=== PATIENT | female | born 1975 | race Caucasian/White ===

== ENCOUNTER 2019-04-25 16:43 | Emergency (ER) | payer OTHER ==
[2019-04-25] MEDS ORDERED: IBUPROFEN 600 MG TABLET PO ONE (17:23)
--- NOTE | 2019-04-25 17:33 | ER Document Report ---
ED Medical Screen (RME) - General Chief Complaint: Fall Injury Stated Complaint: FALL/BACK AND STERNUM PAIN Time Seen by Provider: 04/25/19 17:17 Primary Care Provider: TYRELL CARMICHAEL MD [Primary Care Provider] - Follow up as needed Notes: Patient is a 43-year-old female who presents emergency department with a chief complaint of chest wall pain. Patient had fallen a week ago on concrete and was seen at urgent care. Her x-rays were normal. Today she took some ibuprofen in the morning and throughout the day she ended up having some chest wall pain. She states that every time she presses on her mid chest at her sternum, she ends up having pain. Exam: Tenderness upon palpation to sternum and right lateral chest wall. I have greeted and performed a rapid initial assessment of this patient. A comprehensive ED assessment and evaluation of the patient, analysis of test results and completion of medical decision making process will be conducted by an additional ED providers. - Related Data Allergies/Adverse Reactions: codeine [Codeine] Allergy (Unverified 01/27/11 05:26) Home Medications: lexapro. buspar Past Medical History - Social History Frequency of alcohol use: None Drug Abuse: None Physical Exam - Vital signs Vitals: Temp Pulse Resp BP Pulse Ox 98.4 F 83 18 121/72 100 04/25/19 16:54 04/25/19 16:54 04/25/19 16:54 04/25/19 16:54 04/25/19 16:54 Course - Vital Signs Vital signs: Temp Pulse Resp BP Pulse Ox 98.4 F 83 18 121/72 100 04/25/19 16:54 04/25/19 16:54 04/25/19 16:54 04/25/19 16:54 04/25/19 16:54 Doctor's Discharge - Discharge Referrals: TYRELL CARMICHAEL MD [Primary Care Provider] - Follow up as needed
--- NOTE | 2019-04-25 18:04 | RADIOLOGY REPORT (SQ) ---
EXAM DESCRIPTION: RIBS BILATERAL W/PA CXR COMPLETED DATE/TIME: 04/25/2019 5:46 pm REASON FOR STUDY: fall; chest wall pain COMPARISON: None. TECHNIQUE: Frontal view of the chest and additional views of the right and left ribs acquired. NUMBER OF VIEWS: Four views LIMITATIONS: None. FINDINGS: FRONTAL CXR: No pneumothorax. No pleural effusion. No atelectasis or infiltrates. RIBS: No displaced rib fractures. No lytic or blastic bony lesions. OTHER: No other significant finding. IMPRESSION: NO PNEUMOTHORAX. NO DISPLACED RIB FRACTURES. COMMENT: SITE OF TRAUMA/COMPLAINT MARKED/STAMP COMPLETED: No TECHNICAL DOCUMENTATION: JOB ID: [id number] [employer]- All Rights Reserved Reading location - IP/workstation name: [email or web address]
--- NOTE | 2019-04-25 18:05 | RADIOLOGY REPORT (SQ) ---
EXAM DESCRIPTION: STERNUM COMPLETED DATE/TIME: 04/25/2019 5:46 pm REASON FOR STUDY: fall 1 week ago; chest wall pain COMPARISON: None. NUMBER OF VIEWS: Two views. TECHNIQUE: Lateral and AP and/or oblique views of the sternum. LIMITATIONS: None. FINDINGS: There is no acute or significant bone, joint or soft tissue abnormality. OTHER: No other significant finding. IMPRESSION: NEGATIVE STUDY OF THE STERNUM. TECHNICAL DOCUMENTATION: JOB ID: [id number] [employer]- All Rights Reserved Reading location - IP/workstation name: [email or web address]
--- NOTE | 2019-04-25 18:19 | ER Document Report ---
HPI - HPI Time Seen by Provider: 04/25/19 17:17 Pain Level: 5 Context: Patient is a 43-year-old female who presents emergency department with a chief complaint of chest wall pain. Patient had fallen a week ago on concrete and was seen at urgent care. Her x-rays were normal. Today she took some ibuprofen in the morning and throughout the day she ended up having some chest wall pain. She states that every time she presses on her mid chest at her sternum, she ends up having pain. - CONSTITUTIONAL Constitutional: DENIES: Fever, Chills - EENT EENT: DENIES: Sore Throat, Ear Pain, Nasal Drainage-Clear, Nasal Drainage- Purulent, Congestion - NEURO Neurology: DENIES: Headache, Weakness - RESPIRATORY Respiratory: DENIES: Trouble Breathing, Coughing - GASTROINTESTINAL Gastrointestinal: DENIES: Abdominal Pain, Nausea, Patient vomiting - REPRODUCTIVE Reproductive: DENIES: : - MUSCULOSKELETAL Musculoskeletal: DENIES: Extremity pain Notes: Anterior chest wall pain - DERM Skin Color: Normal Skin Problems: None Past Medical History - General Information source: Patient - Social History Smoking Status: Never Smoker Frequency of alcohol use: None Drug Abuse: None Family History: Reviewed & Not Pertinent Patient has suicidal ideation: No Patient has homicidal ideation: No Vertical Provider Document - CONSTITUTIONAL Agree With Documented VS: Yes Exam Limitations: No Limitations General Appearance: No Apparent Distress - HEENT HEENT: Atraumatic, Normocephalic, PERRLA - NECK Neck: Normal Inspection - RESPIRATORY Respiratory: Breath Sounds Normal, No Respiratory Distress - CARDIOVASCULAR Cardiovascular: Regular Rate, Regular Rhythm Pulses: Normal: Radial - GI/ABDOMEN Gastrointestinal: Abdomen Soft - MUSCULOSKELETAL/EXTREMETIES Musculoskeletal/Extremeties: FROM, Tender Notes: Mid anterior chest that sternum - NEURO Level of Consciousness: Awake, Alert, Appropriate Motor/Sensory: No Motor Deficit, No Sensory Deficit - DERM Integumentary: Warm, Dry, No Rash Course - Re-evaluation Re-evalutation: 04/25/19 Patient's sternum and rib x-rays are negative for any acute fracture. I have advised the patient to continue to take ibuprofen and Tylenol for pain relief. A very low suspicion for any life-threatening etiology at the time. No pneumothorax noted. Patient will follow-up with her primary care provider. I have suggested the patient go to physical therapy for pain relief. She is in agreement with this plan. Follow-up precautions were given. Verbal discharge instructions were given to the patient. They verbalized understanding. They are stable for discharge. - Vital Signs Vital signs: Temp Pulse Resp BP Pulse Ox 98.4 F 83 18 121/72 100 04/25/19 16:54 04/25/19 16:54 04/25/19 16:54 04/25/19 16:54 04/25/19 16:54 Discharge - Discharge Clinical Impression: Fall Qualifiers: Encounter type: initial encounter Qualified Code(s): W19.XXXA - Unspecified fall, initial encounter Contusion, chest wall Qualifiers: Encounter type: initial encounter Laterality: right Qualified Code(s): S20.211A - Contusion of right front wall of thorax, initial encounter Condition: Stable Disposition: HOME, SELF-CARE Additional Instructions: You are seen today in the emergency department after a fall that happened last week. Your x-rays do not show any broken bones. Please make sure that you are taking nice good deep breaths to prevent pneumonia. Please continue to take ibuprofen 600 mg and acetaminophen 1000 mg every 6 hours for your pain. You will be at the maximum dose with this regimen. Please follow-up with your primary care provider in regards to this visit. Referrals: TYRELL CARMICHAEL MD [NO LOCAL MD] - Follow up in 3-5 days
[2019-04-25 18:54] VITALS: BP 120/76
== END 2019-04-25 18:40 | disposition home or self-care (01) ==
LOC: ER 16:43
DX: S20.211A Contusion of right front wall of thorax, initial encounter (principal); R07.89 Other chest pain; W19.XXXA Unspecified fall, initial encounter
CPT/HCPCS: 71111; 71120; 99284